=== PATIENT | female | born 1945 | race Caucasian/White ===

== ENCOUNTER 2019-11-30 14:05 | Inpatient (IN) ==
[2019-11-30] MEDS ORDERED: CARDIZEM IV ONE ×3 (14:21→15:53)
[2019-11-30] MEDS ORDERED: CARDIZEM 100 MG/NS 100 MG/100 ML IVPB IV SCH ×2 (14:30→16:00)
--- NOTE | 2019-11-30 15:41 | EKG Report ---
Test Performed on : 11/30/2019 3:31:48 PM Test Reason : elevated heart rate Blood Pressure : / mmHG Vent. Rate : 137 BPM Atrial Rate : 070 BPM P-R Int : 000 ms QRS Dur : 104 ms QT Int : 342 ms P-R-T Axes : 000 015 128 degrees QTc Int : 516 ms Supraventricular tachycardia. with occasional premature ventricular complexes. ST & T wave abnormality, consider lateral ischemia Abnormal ECG When compared with ECG of 22-DEC-2017 15:51, premature ventricular complexes. are now present Vent. rate has increased BY [address] now depressed in Inferior leads Nonspecific T wave abnormality no longer evident in Anterior leads T wave inversion more evident in Lateral leads Confirmed by Fercho Roberts MD ([id number]) on 12/01/2019 4:57:47 PM
[2019-11-30] MEDS ORDERED: CORDARONE 360 MG/D5W 360 MG/200 ML IV.SOLN IV ONE (17:04)
[2019-11-30 17:52] LABS: HEMATOCRIT 44.4 % (37.0-47.0); HEMOGLOBIN 14.1 g/dL (12.0-16.0); MCHC 31.8 g/dL (33-37); MCV 91.2 FL (81-99); MPV 9.1 FL (7.4-10.4); RBC 4.87 XMIL (4.2-5.4); WBC 13.03 X1000 (4.8-10.8)
[2019-11-30 18:03] LABS: PROTIME 13.3 Seconds (11.0-16.0); PTT 26.9 Seconds (22.3-41.8)
[2019-11-30 18:19] LABS: URINE SOURCE CLEAN CATCH
[2019-11-30 18:22] LABS: BILIRUBIN URINE NEGATIVE (NEGATIVE); BLOOD URINE TRACE (NEGATIVE); COLOR YELLOW; GLUCOSE URINE NEGATIVE (NEGATIVE); KETONE URINE NEGATIVE (NEGATIVE); LEUKOCYTES URINE NEGATIVE (NEGATIVE); NITRITE URINE NEGATIVE (NEGATIVE); PH URINE 5.5; PROTEIN URINE NEGATIVE (NEGATIVE); SP GRAVITY URINE 1.018; TURBIDITY URINE CLEAR (CLEAR); UR EPITHELIAL CELLS <10 /HPF (<10); URINE BACTERIA NEGATIVE /HPF; URINE RBC <10 /HPF (<10); URINE WBC <10 /HPF (<10); UROBILINOGEN URINE NORMAL (NORMAL)
[2019-11-30 18:24] LABS: AGAP 13; BUN 18 mg/dL (8-22); CALCIUM 9.4 mg/dL (8.8-10.2); CHLORIDE 104 mmol/L (98-107); COSMO 284; CREATININE 0.7 mg/dL (0.5-0.9); ESTIMATED GFR > 60; GLUCOSE 150 mg/dL (70-104); MAGNESIUM 1.8 mg/dL (1.5-2.7); POTASSIUM 4.8 mmol/L (3.5-5.1); SODIUM 140 mmol/L (136-145); TCO2 23 mmol/L (25-35)
[2019-11-30 18:34] LABS: FREE T4 1.22 ng/dL (0.93-1.70); TSH 1.7 uIUmL (0.27-4.20)
[2019-11-30] MEDS: ELIQUIS PO SCH (21:23)
[2019-11-30] MEDS ORDERED: CORDARONE 540 MG in D5W 289.2 ML IV ONE (23:04)
[2019-11-30] MEDS ORDERED: CORDARONE 360 MG/D5W 360 MG/200 ML IV.SOLN IV SCH (23:04)
[2019-12-01] MEDS ORDERED: SYNTHROID PO SCH (07:00)
--- NOTE | 2019-12-01 07:30 | Diag Imaging Result Doc PS360 ---
EXAM: CHEST-PORTABLE INDICATION: HTN TECHNIQUE: One view COMPARISON: 11/17/2018 FINDINGS: The lungs are grossly clear. There is no discrete pleural fluid collection or pneumothorax. The cardiomediastinal silhouette and central vasculature are grossly unremarkable accounting for magnification from AP technique. IMPRESSION: No evidence of acute pathology by plain radiograph. Electronically signed by Tommie Wilkins 12/01/2019 7:28 AM
--- NOTE | 2019-12-01 08:06 | PROGRESS NOTE ---
DATE: 12/01/2019 SUBJECTIVE: Ms. Bryant has continued with atrial fibrillation and atrial flutter throughout the night. Heart rate has ranged from 95 to 109 on a diltiazem drip and amiodarone. She denies any chest pain, palpitations, or anginal equivalents. Serial cardiac enzymes are negative. Thyroid studies demonstrate a TSH of 1.7 and a free T4 of 1.2. OBJECTIVE: Vital Signs: Temperature 98.2 degrees, pulse 95, respirations 17, BP 116/71. CV: Irregularly irregular. Lungs: Clear. Abdomen: Soft, nontender with active bowel sounds. ASSESSMENT AND PLAN: New onset atrial fibrillation/flutter. Apparently, she has been having palpitations off and on for several months. She was noted to be in atrial flutter in my office yesterday. She has had persistent episodes of both atrial flutter and atrial fibrillation. Unfortunately, she has not cardioverted chemically on the intravenous amiodarone. Cardiology workup is negative at this point in time. I am going to consult Dr. Chucky Royal for consideration of a transesophageal echocardiogram. If the transesophageal echocardiogram is negative, potentially we can cardiovert the patient as long as she is not converted to normal sinus rhythm. cc: Fercho Roberts MD
[2019-12-01] MEDS: ELIQUIS PO SCH (08:30)
[2019-12-01] MEDS ORDERED: PRINIVIL PO SCH (09:00)
[2019-12-01] MEDS ORDERED: PATIENT'S OWN MED PO SCH (09:00)
[2019-12-01] MEDS ORDERED: TOPROL XL PO SCH (09:00)
[2019-12-01] MEDS ORDERED: ZOLOFT PO SCH (09:00)
[2019-12-01] MEDS ORDERED: NON-FORMULARY MED PO SCH ×2 (09:00→21:00)
[2019-12-01] MEDS ORDERED: PREMARIN PO SCH (09:00)
--- NOTE | 2019-12-01 10:14 | EKG Report ---
Test Performed on : 12/01/2019 09:57:45 AM Test Reason : afib Blood Pressure : / mmHG Vent. Rate : 121 BPM Atrial Rate : 242 BPM P-R Int : 000 ms QRS Dur : 098 ms QT Int : 378 ms P-R-T Axes : 000 025 084 degrees QTc Int : 536 ms Atrial flutter. with 2:1 AV conduction. Nonspecific T wave abnormality Abnormal ECG When compared with ECG of 30-NOV-2019 15:31, (Unconfirmed) Atrial flutter. has replaced Sinus rhythm. ST no longer depressed in Inferior leads T wave inversion no longer evident in Lateral leads Confirmed by Armando CHAN, Fercho Ramirez ([id number]) on 12/01/2019 4:58:35 PM
--- NOTE | 2019-12-01 12:10 | CONSULTATION ---
DATE OF CONSULTATION: 12/01/2019 IMPRESSION: 1. New onset atrial fibrillation initially with rapid ventricular rate but now better controlled. Suspect she has had atrial fibrillation for about a month based on her symptomatology. There is a remote history of an episode of atrial flutter in the past mentioned in her old records. She persists in atrial fibrillation despite IV amiodarone initiated yesterday. 2. Hypertension. 3. Obesity. 4. Hypothyroidism. RECOMMENDATIONS: 1. Agree with initiation of anticoagulation given CHADS-VASc score of 2. 2. Atrial fibrillation has persisted despite IV amiodarone. Request of pursuit of JOHN cardioversion is certainly reasonable. This was discussed with the patient including the indications and potential hazards. She wished to proceed. HISTORY: This is a 74-year-old white female with past history of obesity. Hypertension and hypothyroidism was admitted from the office yesterday with atrial fibrillation with rapid ventricular rate. She had returned for routine followup yesterday and was noted to have an irregular tachycardia with ECG subsequently showing atrial fibrillation with rapid ventricular rate. Retrospectively she relates some palpitations over the past 4 to 5 weeks that seemed to occur intermittently and might be associated with some transient dizziness. There has been no syncope nor angina. There has been no orthopnea. She presently is without chest discomfort or shortness of breath and is unaware of her atrial fibrillation now that her heart rate is better controlled. She was started on IV amiodarone last night in hopes of converting her to sinus rhythm. She has also been started on Eliquis for thromboembolic risk protection. PAST MEDICAL HISTORY: 1. Obesity. 2. Hypertension. 3. Hypothyroidism. 4. Diverticular disease of colon. PAST SURGICAL HISTORY: Exploratory laparotomy for small bowel obstruction. ALLERGIES: She is allergic or intolerant to levofloxacin. MEDICATIONS PRIOR TO ADMISSION: As listed. SOCIAL HISTORY: She drinks an occasional glass a wine. She does not smoke. FAMILY HISTORY: Negative for premature coronary disease. REVIEW OF SYSTEMS: Pulmonary: Negative. Gastrointestinal: Negative. Constitutional: Negative. Remainder of review of systems negative/noncontributory beyond history of present illness with 14 total systems reviewed. PHYSICAL EXAMINATION: General: This is an obese older white female in no distress on room air. Vital Signs: Blood pressure 130/90, heart rate 103 and irregular with ECG monitor showing atrial fibrillation, oxygen saturation 99% on room air. HEENT: Extraocular movements intact. Mucous membranes moist. Neck: Supple without jugular venous distention. There are no carotid bruits. Chest: Clear to auscultation. Cardiac Exam: Reveals an irregular rate and rhythm without appreciable murmur or gallop. Abdomen: Soft. Bowel sounds are normal. Extremities: Without edema. Neurologic: Reveals her to be alert and fully oriented. Speech is fluent. She moves all 4 extremities equally well. EKG: Twelve lead EKG obtained yesterday afternoon demonstrates atrial fibrillation with rapid ventricular rate with occasional premature ventricular aberrantly conducted complex and nonspecific ST and T-wave abnormality probably related to tachycardia. LABORATORY DATA: White blood cell count 13.3, hematocrit 44.4, hemoglobin 14.1, platelet count 298,000. Pro-time 13.3, INR 1.0, PTT 26.9. Sodium 140, potassium 4.8, chloride 104, carbon dioxide 23, BUN 18, creatinine 0.7, glucose 150. Initial CPK 57. Followup CPK 54 and 51. Troponin T high sensitivity 16. TSH 1.7, free T4 1.22. Magnesium 1.8. cc: MD Fercho Voss MD
[2019-12-01] MEDS ORDERED: XYLOCAINE 2% VISCOUS ONE (12:15)
[2019-12-01] MEDS ORDERED: NS 1,000 ML ONE (12:16)
[2019-12-01] MEDS ORDERED: DIPRIVAN 1% ONE (12:25)
[2019-12-01 15:36] VITALS: BP 141/79
--- NOTE | 2019-12-02 13:20 | DISCHARGE SUMMARY ---
ADMISSION DATE: 11/30/2019 DISCHARGE DATE: 12/01/2019 DISCHARGE DIAGNOSES: 1. Atrial flutter with rapid ventricular response. 2. Essential hypertension. 3. Primary hypothyroidism. 4. Major depression. 5. Encounter for cardioversion procedure. 6. Metabolic syndrome. DISCHARGE INSTRUCTIONS: 1. Return to clinic in one week to see me, Dr. James Roberts, in anticipation of a transition of care visit. 2. Office visit to see Dr. Royal for cardiac follow-up in 7 to 14 days. 3. Healthy heart diet. 4. Activity as tolerated. MEDICATIONS: Eliquis 5 mg b.i.d., lisinopril 5 mg daily, sertraline 100 mg daily. Zenaida 180 mg daily. Metamucil daily. Topamax XR 200 mg daily. Multivitamin 1 p.o. daily, levothyroxine 150 mcg daily, metoprolol ER 50 mg daily. DISCHARGE PHYSICAL EXAMINATION: This is a well-developed, well-nourished, 74-year-old lady in no apparent distress. Temperature 98.3 degrees, pulse 81, respirations 16, BP 141/79. CV: Regular rate and rhythm. Lungs: Clear. Abdomen: Soft, nontender with active bowel sounds. Mrs. Maryan Bryant was admitted to [facility] with atrial flutter with rapid ventricular response. The patient was admitted to the PVC Unit where she was placed on a diltiazem drip for rate control and was started on IV amiodarone per protocol. She ruled out for myocardial ischemia by serial enzymes. Thyroid studies were within normal limits. She had no obvious electrolyte abnormalities. Unfortunately, she did not spontaneously cardiovert on a combination of diltiazem and amiodarone. Dr. Royal performed a JOHN which demonstrated no intramural clots and she was successfully cardioverted. She remained in normal sinus rhythm. Heart rate was in the 70s and 80s. A follow-up echocardiogram demonstrated an EF of around 40%. We started her on Eliquis 5 mg b.i.d. to reduce the risk of stroke. She had no previous history of rheumatic heart fever. Because of the low ejection fraction of 40%, we left her on metoprolol for rate control and we felt the diltiazem would further suppress cardiac output given the low EF with a history of palpitations. Over the past several months, I suspect that she has been having episodes of atrial flutter. Dr. Royal and I both believe that she would be a candidate for EPS studies and possible ablation. We will refer her to one [facility] the [facility] [place], [place]. Having reached maximum hospital benefit, the patient was discharged in stable condition. cc: Fercho Roberts MD
--- NOTE | 2019-12-02 15:21 | ECHO REPORT ---
ORDER DATE: 11/30/2019 INDICATION: Atrial flutter. FINDINGS: 1. The right atrium is mildly enlarged. 2. Mild tricuspid regurgitation. RV systolic pressure of 29. 3. Normal RV size and systolic function. 4. No significant pulmonic insufficiency. 5. Severe left atrial enlargement with a volume index of 53. 6. No mitral valve prolapse. Mild mitral regurgitation. No evidence of no evidence of mitral stenosis. 7. Normal LV systolic function. End-diastolic dimension of 5.6 cm. Normal wall thicknesses with a posterior and interventricular septal wall thickness 1 cm each. Suggested to be normal LV systolic function with an estimated EF of 55%. Endocardial border definition is difficult so segmental wall motion analysis cannot be performed. 8. The aortic valve appears to open reasonably well. No evidence of stenosis or insufficiency. 9. The aorta appears normal in visualized segments. 10. No pericardial effusion seen. 11. Suggestion of grade 3 diastolic dysfunction with an E/A ratio of 2.76. 12. The IVC appears to be normal in size. 13. This is a very difficult study with the patient who is 5 feet 4 inches and weighs 280 pounds. cc: MD Fercho Mart MD
--- NOTE | 2019-12-04 22:16 | CARDIAC CATH REPORT ---
PROCEDURE: Cardioversion. SUMMARY: Transesophageal echocardiography was performed just prior to cardioversion and demonstrated no evidence of intracardiac thrombus. Left atrial appendage was free of intracardiac thrombus. The patient was already sedated per Anesthesiology with propofol. The patient subsequently underwent synchronous direct current cardioversion of atrial flutter with 50 joules biphasic delivered with resultant conversion of atrial flutter to sinus rhythm. The patient tolerated the procedure without apparent complications. CONCLUSIONS: Successful cardioversion of atrial flutter to sinus rhythm. cc: MD Fercho Voss MD [facility]
--- NOTE | 2019-12-05 08:49 | Transesophageal Echocardiogram ---
ORDER DATE: 12/01/2019 SUMMARY: After intravenous sedation per Anesthesiology with propofol, I passed transesophageal echocardiogram probe into the patient's esophagus without difficulty. Transesophageal echocardiography was subsequently performed and demonstrated: 1. Aortic, mitral, tricuspid and pulmonic valves are without evidence of structural abnormality. There is mild mitral regurgitation and trace tricuspid regurgitation. The aortic root is normal in size. 2. Normal left ventricular dimensions demonstrated. The estimated left ejection fraction approximately 40 to 50 percent with mild global hypokinesis. Left atrium is mildly enlarged. There is mild spontaneous contrast in left atrium. Right atrium, right ventricle normal in size with normal right ventricular systolic function. All 4 cardiac chambers and left atrial appendage are free of intracardiac thrombus. 3. Interatrial septum appears intact. There is no evidence of [id number] shunting on color Doppler. Intravenous agitated saline contrast study performed reveals no evidence of right-to- left intracardiac shunting. 4. No pericardial effusion. 5. Descending thoracic aorta demonstrates very mild atherosclerotic plaque. cc: MD Erin Voss PA M. Neel Roberts, MD
== END 2019-12-01 17:34 | disposition home or self-care (01) | DRG 309 ==
LOC: DIRADM 14:05 → 2N 15:03
PROVIDERS: ADMIT Internal Medicine; ATTEND Internal Medicine